=== PATIENT | female | born 1965 | race Caucasian/White ===

== ENCOUNTER → 2016-04-21 | Outpatient (CLI) | payer OTHER ==
--- NOTE | 2016-04-21 10:12 | MR ---
EXAMINATION TYPE: MR bronwyn/lsjazmine wo con DATE OF EXAM: 04/21/2016 9:34 AM COMPARISON: NONE HISTORY: 50-year-old female Headache, neck and lower back pain, bilateral upper extremity radiculopat hy x several years TECHNIQUE: Multiplanar, multisequence images of the cervical followed by the lumbar spine were obtain ed without IV contrast. FINDINGS: CERVICAL SPINE: No craniocervical junction abnormality, predental space widening, or prevertebral soft tissue swellin g. There is reversal of the normal cervical lordosis with preserved alignment. Intervertebral discs are degenerated and desiccated. Disc interspace is mild to moderately narrowed a t C5-C6 and mild at C4-C5 and C6-C7. Posterior disc bulges are present, largest at 6-C7. Scattered facet arthropathy is noted. At C2-C3, no spinal canal or neuroforaminal stenosis. At C3-C4, no spinal canal or neuroforaminal stenosis. Mild facet degenerative changes present. At C4-C5, mild discussed by complex formation and facet degenerative change. Changes causing mild marline rowing of the spinal canal without significant neuroforaminal stenosis. At C5-C6, there is broad-based disc osteophyte complex contributing to a mild to moderate narrowing o f the spinal canal effacing both the dorsal and ventral CSF and mildly flattening the ventral cord. T here is facet and uncovertebral joint degenerative change contributing to moderate bilateral neurofor aminal stenoses. At C6-C7, there is a left paracentral disc protrusion contributing to moderate spinal canal stenosis and impingement of the left paracentral ventral cord. There is mild facet arthropathy without signifi cant neural foraminal stenosis. At C7-T1, there is facet degenerative change without significant spinal canal or neuroforaminal steno sis. Towards the right at T1-T2, T2-T3, and T3-T4, there are eccentric bulges contribute to mild right-bryce ed neural foraminal stenoses at these levels. No prevertebral or paravertebral soft tissue abnormality seen. No discrete myelopathic cord signal abnormality. LUMBAR SPINE: Vertebral body heights are preserved and alignment is maintained. Fatty matrix hemangioma within T11 vertebral body. No suspicious bone marrow replacement. Conus medullaris is normal. Intervertebral discs are degenerated, desiccated, and mildly narrowed especially from L2 through S1 l evels with imaging disks throughout and posterior annular fissure at L4-L5. Hypertrophic facet arthropathy mid to lower lumbar spine. At T11-T12, there is mild diffuse disc bulge impressing on the ventral thecal sac without significant spinal canal stenosis. At T12-L1, no significant spinal canal or neuroforaminal stenosis. At L1-L2, no spinal canal or neuroforaminal stenosis. At L2-L3, there is diffuse disc bulge which impresses onto the ventral thecal sac but does not cause a significant spinal canal stenosis. However, changes do contribute to mild bilateral neuroforaminal narrowing. At L3-L4, there is facet degenerative change and diffuse disc bulge. This impresses onto the ventral thecal sac but does not cause any significant spinal canal stenosis. However, there is mild bilateral neuroforaminal stenosis. At L4-L5, hypertrophic facet arthropathy with diffuse disc bulge and posterior annular fissure. Again , this impresses on the ventral thecal sac but does not cause significant spinal canal stenosis. Disc material closely approaches and may abut both traversing L5 nerve roots. There is mild right and mod erate left neuroforaminal stenosis. At L5-S1, diffuse disc bulge with mild facet degenerative change. Changes result in mild bilateral ne uroforaminal stenoses without significant spinal canal stenosis. No prevertebral or paravertebral soft tissue abnormality. COMBINED IMPRESSION: CERVICAL SPINE: 1. MODERATE MULTILEVEL DEGENERATIVE DISC DISEASE, GREATEST FROM C4 TO C7 LEVELS ALONG WITH FACET ARTH ROPATHY. 2. A LEFT PARACENTRAL DISC HERNIATION AT C6-C7 CAUSES MODERATE SPINAL CANAL NARROWING AND IMPINGES TH E VENTRAL CORD. NO MYELOPATHIC CORD SIGNAL CHANGE. 3. MILD TO MODERATE SPINAL CANAL STENOSIS AT C5-C6 WITH FLATTENING OF THE VENTRAL CORD. 4. MILD SPINAL CANAL NARROWING AT C4-C5. 5. SOME SCATTERED LEVELS OF MILD NEURAL FORAMINAL STENOSES THOUGH MODERATE ON BOTH SIDES AT C5-C6. LUMBAR SPINE: 1. MODERATE DEGENERATIVE DISC DISEASE MID TO LOWER LUMBAR SPINE ALONG WITH HYPERTROPHIC FACET ARTHROP ATHY. 2. THERE IS A POSTERIOR ANNULAR FISSURE AT L4-L5 WITH DISC MATERIAL CLOSELY APPROACHING AND POSSIBLY ABUTTING BOTH TRAVERSING L5 NERVE ROOTS. MILD RIGHT AND MODERATE LEFT NEUROFORAMINAL STENOSIS AT THIS LEVEL. 3. ADDITIONAL POSTERIOR DISC BULGES FROM L2 TO S1 LEVELS IMPRESSING ON THE VENTRAL THECAL SAC BUT NOT CAUSING ANY SIGNIFICANT SPINAL CANAL STENOSIS. 4. VARIABLE MILD NEUROFORAMINAL STENOSES OUTLINED ABOVE.
== END ==
LOC: RADMRIMAIN 08:38
PROVIDERS: ATTEND Psychiatry & Neurology Neurology
DX: M50.223 Other cervical disc displacement at C6-C7 level (principal); M48.02 Spinal stenosis, cervical region; M51.36 Other intervertebral disc degeneration, lumbar region; M46.96 Unspecified inflammatory spondylopathy, lumbar region; M48.06 Spinal stenosis, lumbar region
CPT/HCPCS: 72141; 72148

== ENCOUNTER → 2016-11-07 | Outpatient (CLI) | payer OTHER ==
--- NOTE | 2016-11-07 10:01 | MR ---
EXAMINATION TYPE: MR brain wo con DATE OF EXAM: 11/07/2016 COMPARISON: 04/28/2013 MRI brain HISTORY: headaches Dizziness CONTRAST: Performed utilizing 0 mL intravenous Gadavist gadolinium contrast. TECHNIQUE: Multiplanar, multiecho imaging on a 3.0 Hazel magnet is performed through the brain. Stud y is performed within 24 hours of arrival to the hospital. The craniovertebral junction is normal. The pituitary is normal. Diffusion-weighted imaging is performed. No abnormal hyperintensity is present to suggest an acute i ntracranial infarct or acute ischemic change. There are a few scattered deep white matter hyperintensity slightly greater in the right centrum semi ovale and black radiata which are nonspecific but could be related to microvascular ischemic change. The largest of these includes the left black radiata 0.6 x 0.4 cm area adjacent to the anterior hor n left lateral ventricle, series 501 image 17, and the right frontal lobe white matter change in the centrum semiovale measuring 0.4 cm. Series 501 image 20 . Ventricles and sulci are appropriate for the patient age. Minimal mucosal thickening is within the anterior right ethmoid air cell. Mild mucosal thickening wit hin the bilateral maxillary sinuses. A small retention cyst may be at the inferior left maxillary sin us. IMPRESSIONS: 1. Scattered bilateral punctate deep white matter changes which are nonspecific, slightly greater on the right than the left. Findings are nonspecific but could be related to microvascular ischemic jarvis ge among other etiologies. These are out of proportion to the patient age. Differential should includ e multiple sclerosis, migraine headaches, vasculitis, Lyme disease. 2. White matter changes are increasing in number and size over the interval from 2013.
--- NOTE | 2016-11-07 10:04 | MR ---
EXAMINATION TYPE: MR angio head wo con DATE OF EXAM: 11/07/2016 COMPARISON: 10/06/2008 HISTORY: headaches Dizziness CONTRAST: None TECHNIQUE: Multiplanar multiecho imaging on a 3.0 Hazel magnet is performed through the [place]. 3-D [id number] imaging is performed. Source images are reviewed on the computer in the axi al plane. Reconstructed images rotating on the computer are reviewed. FINDINGS: The internal carotid arteries bifurcate normally into A1 and M1 segments. The A2 segments are normal. Middle cerebral artery branches are normal. Ophthalmic arteries appear normal. Anterior communicating artery is patent. The right posterior communicating artery is small but patent. The left posterior communicating artery is absent. Vertebrobasilar arteries within the [id number] are normal. Posterior cerebral vasculature is norm al. No suspicious aneurysm or aneurysmal dilatation is evident. No obstructions are identified. No significant flow-limiting stenosis is evident. IMPRESSIONS: 1. NORMAL MRA [place].
== END | disposition home or self-care (01) ==
LOC: RADMRIMAIN 07:06
PROVIDERS: ATTEND Psychiatry & Neurology Neurology
DX: R90.89 Other abnormal findings on diagnostic imaging of central nervous system (principal); R42 Dizziness and giddiness; R51 Headache; Z91.011 Allergy to milk products; Z91.02 Food additives allergy status; Z88.1 Allergy status to other antibiotic agents
CPT/HCPCS: 70544; 70551

== ENCOUNTER 2016-11-09 07:02 | Day surgery (SDC) | payer OTHER ==
[2016-11-07 12:36] VITALS: BMI 27.4
[~2016-11-09 07:02] MED LIST: LACTATED RINGERS 1,000 ML IV SCH
[2016-11-09 07:17] VITALS: RESP 16; TEMP 97
[2016-11-09] MEDS ORDERED: LACTATED RINGERS 1,000 ML IV ONE (07:26)
[2016-11-09] MEDS ORDERED: PROPOFOL 10 MG/ML 20 ML VIAL IV ONE (08:02)
--- NOTE | 2016-11-09 08:06 | P.GSHP ---
History of Present Illness H&P Date: 11/09/16 Chief Complaint: Screening colonoscopy This is a 51-year-old female who presents today for screening colonoscopy. Patient denies any significant GI complaints. Past Medical History Past Medical History: GERD/Reflux, Hypertension Additional Past Medical History / Comment(s): back pain, frequent migraines, abd. cramping @times History of Any Multi-Drug Resistant Organisms: None Reported Additional Past Surgical History / Comment(s): laparoscopy Past Anesthesia/Blood Transfusion Reactions: No Reported Reaction Smoking Status: Never smoker - Past Family History Father Family Medical History: Cancer Medications and Allergies Home Medications Medication Instructions Recorded Confirmed Type Acetaminophen Tab [Tylenol Tab] 650 mg PO Q6H PRN 11/07/16 11/09/16 History Butalb/APAP/Caff 50-325-40Mg 2 tab PO Q4H PRN 11/07/16 11/09/16 History [Fioricet 50-325-40] Cholecalciferol [Vitamin D3] 1,000 unit PO DAILY 11/07/16 11/09/16 History Omeprazole 20 mg PO DAILY 11/07/16 11/09/16 History Propranolol [Inderal] 40 mg PO DAILY 11/07/16 11/09/16 History Pyridoxine [Vitamin B-6] 50 mg PO DAILY 11/07/16 11/09/16 History Riboflavin [Vitamin B-2] 50 mg PO DAILY 11/07/16 11/09/16 History SUMAtriptan SUCCINATE [Imitrex] 25 mg PO DIRECTED PRN 11/07/16 11/09/16 History Ondansetron [Zofran] 4 mg PO Q12HR PRN 11/09/16 11/09/16 History Allergies Allergy/AdvReac Type Severity Reaction Status Date / Time celecoxib [From Celebrex] Allergy Dyspnea Verified 11/09/16 07:20 rofecoxib [From Vioxx] Allergy Dyspnea Verified 11/09/16 07:20 Surgical - Exam Vital Signs Temp Pulse Resp BP Pulse Ox 97 F L 70 16 150/70 98 11/09/16 07:16 11/09/16 07:16 11/09/16 07:16 11/09/16 07:16 11/09/16 07:16 - General well developed, no distress - Eyes PERRL - ENT normal pinna - Neck no masses - Respiratory normal expansion - Cardiovascular Rhythm: regular - Abdomen Abdomen: soft, non tender Assessment and Plan Plan: We will perform screening colonoscopy.
--- NOTE | 2016-11-09 08:17 | P.OP ---
Date of Procedure: 11/09/16 Preoperative Diagnosis: Screening colonoscopy Postoperative Diagnosis: External hemorrhoids Diverticulosis Procedure(s) Performed: Colonoscopy Anesthesia: MAC Surgeon: Bradly Paul Pathology: none sent Condition: stable Disposition: PACU Description of Procedure: The patient's placed on the endoscopy table in the lateral position. She received IV sedation. Digital rectal exam was performed which revealed external hemorrhoids. The flexible colonoscope was then placed patient anus passed throughout the entire colon. Ileocecal valve was visualized. The cecum , ascending and transverse colon appeared normal. The descending; there is mild diverticulosis. The scope was brought back the rectum and this appeared normal. Scope was withdrawn for patient.
[2016-11-09 08:54] VITALS: BP 151/79; PULSE 62
== END 2016-11-09 09:10 | disposition home or self-care (01) ==
LOC: ORWHC2ENDO 07:02
PROVIDERS: ATTEND Surgery
DX: Z12.11 Encounter for screening for malignant neoplasm of colon (principal); K57.90 Diverticulosis of intestine, part unspecified, without perforation or abscess without bleeding; K64.4 Residual hemorrhoidal skin tags; K21.9 Gastro-esophageal reflux disease without esophagitis; I25.10 Atherosclerotic heart disease of native coronary artery without angina pectoris; I10 Essential (primary) hypertension; Z79.899 Other long term (current) drug therapy; Z88.8 Allergy status to other drugs, medicaments and biological substances
CPT/HCPCS: 81025; J2704; G0121

== ENCOUNTER → 2016-11-12 | Outpatient (CLI) | payer OTHER ==
--- NOTE | 2016-11-14 07:29 | MM ---
Reason for exam: screening (asymptomatic). Last mammogram was performed 1 year and 4 months ago. History: Patient is nulliparous. Family history of premenopausal breast cancer in cousin at age 35. Benign excisional biopsy of the right breast, 2008. Benign excisional biopsy of the right breast, 1999. Physical Findings: A clinical breast exam by your physician is recommended on an annual basis and results should be correlated with mammographic findings. MG Screening Mammo w CAD Bilateral CC and MLO view(s) were taken. Prior study comparison: July 05, 2015, bilateral MG 3d screening mammo w/cad. May 24, 2014, bilateral MG screening mammo w CAD. There are scattered fibroglandular densities. There is no discrete abnormality. No significant changes when compared with prior studies. ASSESSMENT: Negative, BI-RAD 1 RECOMMENDATION: Routine screening mammogram of both breasts in 1 year.
== END | disposition home or self-care (01) ==
LOC: RADMAMWWP 16:58
PROVIDERS: ATTEND Obstetrics & Gynecology
DX: Z12.31 Encounter for screening mammogram for malignant neoplasm of breast (principal)

== ENCOUNTER → 2017-01-07 | Outpatient (CLI) | payer OTHER ==
[2017-01-07 18:42] LABS: Appearance,CSF Clear
== END | disposition home or self-care (01) ==
LOC: LABWHC1 09:16
PROVIDERS: ATTEND Nurse Practitioner Acute Care
DX: R90.82 White matter disease, unspecified (principal)
CPT/HCPCS: 36415; 82040; 82042; 82784; 83873; 83916; 84157; 87476; 88108; 89050

== ENCOUNTER → 2017-12-17 | Outpatient (CLI) | payer OTHER ==
--- NOTE | 2017-12-19 09:44 | MM ---
Reason for exam: screening (asymptomatic). Last mammogram was performed 1 year and 1 month ago. History: Patient is postmenopausal and is nulliparous. Family history of premenopausal breast cancer in cousin at age 35 and breast cancer in sister at age 48. Benign excisional biopsy of the right breast, 2008. Benign excisional biopsy of the right breast, 1999. Physical Findings: A clinical breast exam by your physician is recommended on an annual basis and results should be correlated with mammographic findings. MG Screening Mammo w CAD Bilateral CC and MLO view(s) were taken. Prior study comparison: November 12, 2016, bilateral MG screening mammo w CAD. July 05, 2015, bilateral MG 3d screening mammo w/cad. There are scattered fibroglandular densities. No suspicious abnormality. No significant changes when compared with prior studies. ASSESSMENT: Negative, BI-RAD 1 RECOMMENDATION: Routine screening mammogram of both breasts in 1 year.
== END | disposition home or self-care (01) ==
LOC: RADMAMWWP 13:27
PROVIDERS: ATTEND Obstetrics & Gynecology
DX: Z12.31 Encounter for screening mammogram for malignant neoplasm of breast (principal)
CPT/HCPCS: 77067

== ENCOUNTER → 2020-03-17 | Outpatient (CLI) | payer OTHER ==
--- NOTE | 2020-03-18 11:34 | MM ---
Reason for exam: screening (asymptomatic). Last mammogram was performed 2 years and 3 months ago. History: Patient is postmenopausal and is nulliparous. Family history of premenopausal breast cancer in cousin at age 35 and breast cancer in sister at age 48. Benign excisional biopsy of the right breast, 2008. Benign excisional biopsy of the right breast, 1999. Physical Findings: A clinical breast exam by your physician is recommended on an annual basis and results should be correlated with mammographic findings. MG Screening Mammo w CAD Bilateral CC and MLO view(s) were taken. Prior study comparison: December 17, 2017, bilateral MG screening mammo w CAD. November 12, 2016, bilateral MG screening mammo w CAD. There are scattered fibroglandular densities. No significant changes when compared with prior studies. ASSESSMENT: Benign, BI-RAD 2 RECOMMENDATION: Routine screening mammogram of both breasts in 1 year.
== END | disposition home or self-care (01) ==
LOC: RADMAMWWP 12:34
PROVIDERS: ATTEND Obstetrics & Gynecology
DX: Z12.39 Encounter for other screening for malignant neoplasm of breast (principal)
CPT/HCPCS: 77067

== ENCOUNTER → 2020-05-03 | Outpatient (CLI) | payer OTHER ==
--- NOTE | 2020-05-04 09:50 | CT ---
EXAMINATION TYPE: CT abdomen pelvis wo con DATE OF EXAM: 05/03/2020 COMPARISON: None HISTORY: RLQ pain, LLQ pain. cramping. CT DLP: 503.20 mGycm Automated exposure control for dose reduction was used. TECHNIQUE: Helical acquisition of images from the lung bases through the pelvis. Patient received or al contrast only. FINDINGS: Posterior diaphragmatic hernia on the left contains fat. Lack of intravenous contrast could compromise sensitivity. LUNG BASES: No significant abnormality is appreciated. AORTA: No significant abnormality is appreciataed. LIVER/GB: No significant abnormality is appreciated. PANCREAS: No significant abnormality is seen. SPLEEN: No significant abnormality is seen. ADRENALS: No significant abnormality is seen. KIDNEYS: No significant abnormality is seen. REPRODUCTIVE ORGANS: No significant abnormality is seen. URINARY BLADDER: No significant abnormality is seen. BOWEL: Diverticular changes are associated with the sigmoid colon. Contrast material has not coursed throughout the bowel, the colon is not contrast filled nor is the distal small bowel. The appendix s hows no inflammatory change.. FREE AIR: No Free Air is visible. ASCITES: None visible. PELVIC ADENOPATHY: None visualized. RETROPERITONEAL ADENOPATHY: No Retroperitoneal Adenopathy visible. OSSEOUS STRUCTURES: Degenerative disc changes are present in the lumbar spine. Suspect possible disc herniation L5-S1. IMPRESSION: DIVERTICULOSIS, DEGENERATIVE DISC DISEASE AND ADDITIONAL FINDINGS ABOVE. NONCONTRAST EXAM.
== END ==
LOC: RADCTMAIN 13:42
PROVIDERS: ATTEND Family Medicine
DX: K57.90 Diverticulosis of intestine, part unspecified, without perforation or abscess without bleeding (principal)
CPT/HCPCS: 74176

== ENCOUNTER → 2020-08-25 | Outpatient (CLI) | payer OTHER ==
--- NOTE | 2020-08-29 05:00 | ECHOF ---
Referral Reason:R01.1 Cardiac murmur MEASUREMENTS -------- HEIGHT: 162.6 cm WEIGHT: 77.1 kg BP: 134/63 RVIDd: 3.2 cm (< 3.3) IVSd: 1.2 cm (0.6 - 1.1) LVIDd: 4.5 cm (3.9 - 5.3) LVPWd: 1.2 cm (0.6 - 1.1) IVSs: 1.6 cm LVIDs: 2.6 cm LVPWs: 1.7 cm LA Diam: 3.2 cm (2.7 - 3.8) LAESV Index (A-L): 27.14 ml/m Ao Diam: 3.0 cm (2.0 - 3.7) AV Cusp: 2.1 cm (1.5 - 2.6) MV EXCURSION: 18.872 mm (> 18.000) MV EF SLOPE: 92 mm/s (70 - 150) EPSS: 0.4 cm MV E Neeraj: 0.93 m/s MV DecT: 269 ms MV A Neeraj: 0.92 m/s MV E/A Ratio: 1.02 RAP: 5.00 mmHg RVSP: 31.19 mmHg FINDINGS -------- Sinus rhythm. This was a technically adequate study. The left ventricular size is normal. There is borderline concentric left ventricular hypertrophy. Overall left ventricular systolic function is normal with, an EF between 55 - 60 %. The right ventricle is normal in size. Normal LA size by volume 22+/-6 ml/m2. The right atrial size is normal. Interatrial and interventricular septum intact. The aortic valve is trileaflet, and appears structurally normal. No aortic stenosis or regurgitation. The mitral valve is normal. Mild mitral regurgitation is present. The tricuspid valve appears structurally normal. Mild tricuspid regurgitation present. Right vent ricular systolic pressure is normal at < 35 mmHg. Trace/mild (physiologic) pulmonic regurgitation. The aortic root size is normal. Normal inferior vena cava with normal inspiratory collapse consistent with estimated right atrial pre ssure of 5 mmHg. There is no pericardial effusion. CONCLUSIONS -------- 1. There is borderline concentric left ventricular hypertrophy. 2. Overall left ventricular systolic function is normal with, an EF between 55 - 60 %. 3. Normal LA size by volume 22+/-6 ml/m2. 4. The aortic valve is trileaflet, and appears structurally normal. No aortic stenosis or regurgitati on. 5. Mild mitral regurgitation is present. 6. Mild tricuspid regurgitation present. 7. Trace/mild (physiologic) pulmonic regurgitation. 8. There is no pericardial effusion. TOWEL STRETCHER: Gaby Abreu RDCS
== END | disposition home or self-care (01) ==
LOC: RADECHMAIN 13:45
PROVIDERS: ATTEND Family Medicine
DX: I08.1 Rheumatic disorders of both mitral and tricuspid valves (principal)
CPT/HCPCS: 93306

== ENCOUNTER → 2021-08-30 | Outpatient (CLI) | payer OTHER ==
--- NOTE | 2021-08-31 08:44 | MM ---
Reason for Exam: Screening (asymptomatic). Last mammogram was performed 1 year(s) and 6 month(s) ago. Patient History: Menarche at age 12. Patient has no children. Postmenopausal. 2008, Benign Excisional Biopsy on the right side. 1999, Benign Excisional Biopsy on the right side. Maternal cousin had breast cancer, age 35. Sister had breast cancer, age 48. Risk Values: Hallie 5 year model risk: 3.6%. NCI Lifetime model risk: 19.3%. Prior Study Comparison: 07/05/2015 Bilateral Screening Mammogram, [facility]. 11/12/2016 Bilateral Screening Mammogram, [facility]. 12/17/2017 Bilateral Screening Mammogram, [facility]. 03/17/2020 Bilateral Screening Mammogram, [facility]. Tissue Density: The breast tissue is heterogeneously dense. This may lower the sensitivity of mammography. Findings: Analyzed By CAD. There is no suspicious group of microcalcifications or new suspicious mass in either breast. Overall Assessment: Negative, BI-RAD 1 Management: Screening Mammogram of both breasts in 1 year. A clinical breast exam by your physician is recommended on an annual basis and results should be correlated with mammographic findings. Electronically signed and approved by: Peter Curry M.D. Radiologis
== END | disposition home or self-care (01) ==
LOC: RADMAMWWP 07:10
PROVIDERS: ATTEND Internal Medicine
DX: Z12.31 Encounter for screening mammogram for malignant neoplasm of breast (principal); Z78.0 Asymptomatic menopausal state; Z80.3 Family history of malignant neoplasm of breast
CPT/HCPCS: 77067

== ENCOUNTER → 2022-02-15 | Outpatient (CLI) | payer OTHER ==
[2022-02-15 08:22] VITALS: BP 157/69; PULSE 80; RESP 18; TEMP 98.4
--- NOTE | 2022-02-15 08:36 | P.PAINCN ---
History of Present Illness - Reason for Consult Consult date: 02/15/22 - Chief Complaint Neck pain, and pain radiating to bilateral upper extremity - History of Present Illness Ms. Alcala is a 56 year old pleasant female patient came to [facility] pain management clinic for initial evaluation for neck pain. Patient described pain started more than 2 years ago. Gradually getting worse . Sometimes her pain radiating to bilateral upper extremity causing numbness and tingling sensation. Patient described pain as aching, sharp, throbbing, burning type sometimes of pain. Patient rated pain 2-3 out of 10 in severity. Which may very her pain level from 2-7 out of 10 in severity. Pain increases with activities, and, bending and lifting. Pain decreases with Flexeril and and Motrin. Overall patient activities decreased secondary to pain. Pain medications helping to some extent. Because of the pain patient is feeling lack of sleep and interest and energy. Denied any bowel or bladder problems. Patient denies any adverse effects to medications. Not using any walking aids for walking. Complaining depression secondary to pain but denied any suicidal/homicidal tendency at this time. Sleep pattern -good with the help of pain medications. There are no signs of narcotic diversion/misuse/overuse and no new-onset weakness, bowel/bladder incontinence, saddle anesthesia, or no red flag symptoms. Conservative treatment tried: Hszi-rdd-[id number] medications, and Flexeril Uleq-tpx-yqzemiv lidocaine patch Ice, and heat Physical therapy exercises- trying 2013 made her pain worse, exercises at home as tolerated TENS unit's- never tried Chiropractic therapy- never tried Review of Systems 12 point review of symptoms negative except as mentioned in the history of present illness Past Medical History Past Medical History: GERD/Reflux, Hypertension Additional Past Medical History / Comment(s): back pain, frequent migraines, abd. cramping @times History of Any Multi-Drug Resistant Organisms: None Reported Additional Past Surgical History / Comment(s): laparoscopy Past Anesthesia/Blood Transfusion Reactions: No Reported Reaction Past Alcohol Use History: None Reported Past Drug Use History: None Reported - Past Family History Father Family Medical History: Cancer Medications and Allergies Home Medications Medication Instructions Recorded Confirmed Type Acetaminophen Tab [Tylenol Tab] 650 mg PO Q6H PRN 11/07/16 11/09/16 History Butalb/APAP/Caff 50-325-40Mg 2 tab PO Q4H PRN 11/07/16 11/09/16 History [Fioricet 50-325-40] Cholecalciferol [Vitamin D3] 1,000 unit PO DAILY 11/07/16 11/09/16 History Omeprazole 20 mg PO DAILY 11/07/16 11/09/16 History Propranolol [Inderal] 40 mg PO DAILY 11/07/16 11/09/16 History Pyridoxine [Vitamin B-6] 50 mg PO DAILY 11/07/16 11/09/16 History Riboflavin (Vitamin B2) [Vitamin 50 mg PO DAILY 11/07/16 11/09/16 History B-2] SUMAtriptan succinate [Imitrex] 25 mg PO DIRECTED PRN 11/07/16 11/09/16 History Ondansetron [Zofran] 4 mg PO Q12HR PRN 11/09/16 11/09/16 History Allergies Allergy/AdvReac Type Severity Reaction Status Date / Time celecoxib [From Celebrex] Allergy Dyspnea Verified 11/09/16 07:20 rofecoxib [From Vioxx] Allergy Dyspnea Verified 11/09/16 07:20 Physical Exam Vitals: General: Well-developed, well-nourished, no acute distress HEENT: Normocephalic, and atraumatic Neck: Supple, no neck swelling Psychiatric: Appropriate mood, and affect RIVETER PORTABLE MACHINE: No focal neurological deficits Musculoskeletal: Upper extremity: Normal strength, and range of motion. Sensation grossly intact Lower extremity: Normal strength, and normal range of motion, sensation grossly intact. Cervical spine: Paravertebral tenderness: Positive Cervical spine facet abilio: Positive Cervical spine Spurling test: Negative Results Comments: MRI of the cervical spine done on 05/10/2021 showed Nonspecific straightening of normal cervical lordosis consistent with strain in the appropriate clinical circumstance. C3-C4: 1-2 mL annular disc bulge affects the ventral surface of the thecal sac resulting in severe right, moderate to severe left neural foraminal encroachment and bilateral exiting C4 nerve root impinging in conjunction with marginal osteophyte formation C4-C5: 2-3 BONNIE annular disc bulge affects the ventral surface of the thecal sac resulting in severe bilateral neural foraminal encroachment, and bilateral exiting C5 nerve impingement in conjunction with marginal osteophyte formation. Mild canal stenosis is seen. C5-C6: 4-5 mL broad-based disc herniation affects the ventral surface of the thecal sac resulting in severe bilateral neural foraminal encroachment, and bilateral exiting C6 nerve impingement in conjunction with marginal osteophyte formation. Moderate canal stenosis. C6-C7: 2-3 BONNIE broad-based disc herniation effaces the ventral surface of the thecal sac resulting in mild bilateral neural foraminotomy encroachment, bilateral exiting C7 nerve root impingement in conjunction with marginal osteophyte formation. Mild canal stenosis C7-T1: 1-2 BONNIE annular bulge affects the ventral surface of the thecal sac without evidence of central canal or limiting foraminal stenosis. Assessment and Plan Assessment: Cervical spondylosis without myelopathy Cervical spondylosis with stenosis Cervical radiculopathy Myofascial pain syndrome, and chronic pain syndrome Plan: #1 Diagnoses, prognosis, and multiple treatment options including but not limited to physical therapy, interventional therapy, adjunct medication therapy, narcotic medication, and surgical options were discussed with the patient. And all questions were answered to the patient's satisfaction. #2 treatment plan agreement : Patient was thoroughly discussed regarding the treatment options, alternatives, and importance of exercises as tolerated. Patient clearly understood. #3 Patient was counseled on importance of regular exercise. Including jacque chi, aerobic exercises as tolerated. Which helps for chronic pain, and overall well- being. Patient also counseled regarding importance of anti-inflammatory food in controlling chronic pain, and overall other health issues. By altering diet habits, minimizing sugar intake, and processed foods helps in minimizing Inflammation. #4 investigations: MAPS- reviewed , urine drug test- none #5 diagnostic tests: None at this time #6 consultation : Physical therapy- 2 times per week for 6 weeks duration # 7 interventional procedures: C6-C7 cervical epidural in 8 weeks duration if physical therapy not much helpful . Procedure, complications, alternatives discussed with the patient. #8 medications #1 Flexeril and milligram by mouth every 12 hours as needed for muscle spasm dispense 60 with 2 refills #2 Motrin as needed #3 Tylenol as needed Medication side effects, complications, long-term consequences discussed with the patient. Patient recommended to contact the pain clinic if noticed any issues with given medications. #9 morphine milligrams equivalents dose ( MME) per day: 0 from the pain clinic. # 10 TENS unit's, and percussion massage device #11 disposition: scheduled to follow up with pain clinic in 8 weeks duration. Time with Patient: Less than 30 PQRS Measure Charge Sheet Measure #130: Documentation of Current Meds in Medical Chart: Patient's medications documented in chart Measure #226: Tobacco Use: Screen & Cessation Intervention: Pt not a tobacco user Measure #111: Pneumonia Vaccination: Pneumococcal vaccine NOT administered or previously given Measure #47: Advance Care Plan: Advance care planning discussed & documented, pt chose/unable to give Measure #412: Opioid Treatment Agreement: No documentation of signed opioid treatment agreement Measure #408: Opioid Therapy Follow-up Evaluation: Patient had NO f/u eval minimum every 3 months during opioid therapy Measure #317: Preventitive Care & Scrn High Bld Press & F/U: Pre-hypertensive or hypertensive BP documented, pt will f/u with PCP Measure #128: Body Mass Index (BMI) Screening & Follow-up: BMI documented within normal parameters Measure #131: Pain Assessment & Follow-up: Pain positive & plan documented Measure #431: Unhealthy Alcohol Use Preventative Care & Scrn: Patient not identified as an unhealthy alcohol user PQRS Narrative: Smoking Status Never smoker Home Medications: Ambulatory Orders Acetaminophen Tab [Tylenol Tab] 650 mg PO Q6H PRN 11/07/16 Butalb/APAP/Caff 50-325-40Mg [Fioricet 50-325-40] 2 tab PO Q4H PRN 11/07/16 Cholecalciferol [Vitamin D3] 1,000 unit PO DAILY 11/07/16 Omeprazole 20 mg PO DAILY 11/07/16 Propranolol [Inderal] 40 mg PO DAILY 11/07/16 Pyridoxine [Vitamin B-6] 50 mg PO DAILY 11/07/16 Riboflavin (Vitamin B2) [Vitamin B-2] 50 mg PO DAILY 11/07/16 SUMAtriptan succinate [Imitrex] 25 mg PO DIRECTED PRN 11/07/16 Ondansetron [Zofran] 4 mg PO Q12HR PRN 11/09/16
== END ==
LOC: PNWHC3 07:45
DX: M47.22 Other spondylosis with radiculopathy, cervical region (principal); M79.10 Myalgia, unspecified site; G89.4 Chronic pain syndrome; M48.02 Spinal stenosis, cervical region; K21.9 Gastro-esophageal reflux disease without esophagitis; I10 Essential (primary) hypertension; Z88.6 Allergy status to analgesic agent; Z88.1 Allergy status to other antibiotic agents
CPT/HCPCS: 99211

== ENCOUNTER → 2022-06-21 | Outpatient (CLI) | payer OTHER ==
--- NOTE | 2022-06-22 10:46 | CA ---
Transthoracic Echo Report Name: Mara Alcala Age: 56 Gender: F : 1965 Exam Date: 06/21/2022 10:38 Exam Location: [facility] Ht (in): 64 Wt (lb): 160 Ordering Physician: Johnson Noel MD ([id number]) Attending/Referring Phys: Blaise Levy DO Health Technical Writer Letty Jorgensen RDCS Procedure CPT: Indications: SHORTNESS OF BREATH Cardiac Hx: Technical Quality: Fair Contrast 1: Total Dose (mL): Contrast 2: Total Dose (mL): MEASUREMENTS (Male / Female) Normal Values 2D ECHO LV Diastolic Diameter PLAX 3.2 cm 4.2 - 5.9 / 3.9 - 5.3 cm LV Systolic Diameter PLAX 2.4 cm IVS Diastolic Thickness 1.3 cm 0.6 - 1.0 / 0.6 - 0.9 cm LVPW Diastolic Thickness 1.5 cm 0.6 - 1.0 / 0.6 - 0.9 cm LV Relative Wall Thickness 0.9 RV Internal Dim ED PLAX 3.3 cm LA Volume 41.8 cm??? 18 - 58 / 22 - 52 cm??? M-MODE Aortic Root Diameter MM 3.1 cm LA Systolic Diameter MM 4.0 cm LA Ao Ratio MM 1.3 AV Cusp Separation MM 1.8 cm DOPPLER AV Peak Velocity 127.3 cm/s AV Peak Gradient 6.5 mmHg LVOT Peak Velocity 94.3 cm/s LVOT Peak Gradient 3.6 mmHg LVOT Velocity Time Integral 16.6 cm MV E' Velocity 8.7 cm/s FINDINGS Left Ventricle Moderately increased left ventricular wall thickness. No obvious regional wall motion abnormalities. Left ventricular ejection fraction is estimated at 50-55 %. Right Ventricle Normal right ventricular size and function. Right ventricular systolic pressure within normal limits. Right Atrium Normal right atrial size. Left Atrium Normal left atrial size. Mitral Valve Structurally normal mitral valve. No mitral stenosis, regurgitation or prolapse. Aortic Valve No aortic valve stenosis or regurgitation. No aortic valve stenosis or regurgitation. Tricuspid Valve Structurally normal tricuspid valve. Mild tricuspid regurgitation. Pulmonic Valve Structurally normal pulmonic valve. Trace pulmonic regurgitation. Pericardium No pericardial effusion. Aorta Normal size aortic root and proximal ascending aorta. CONCLUSIONS Normal LV systolic function. Concentric LVH Previewed by: Dr. Johnson Noel MD (Electronically Signed) Final Date: 22 June 2022 10:45
== END | disposition home or self-care (01) ==
LOC: RADNMMAIN 09:52
PROVIDERS: ATTEND Internal Medicine Interventional Cardiology
DX: R06.02 Shortness of breath (principal)
CPT/HCPCS: 93306

== ENCOUNTER → 2023-04-15 | Day surgery (SDC) | payer OTHER ==
[2023-04-11 10:22] VITALS: BMI 26.6
[~2023-04-15] MED LIST changes: +ALPRAZolam 0.25 MG TAB PO PRN; +ALPRAZolam 0.5 MG TAB PO PRN; +HEPARIN SODIUM 1,000 UN/ML (10ML VL) ONE; -LACTATED RINGERS 1,000 ML IV SCH; +LIDOCAINE 1% INJ 10MG/ML (20 ML MDV) ONE; +NITROGLYCERIN SL TABS 0.4 MG TAB SUBLINGUAL PRN; +RX INFO: IV CONTRAST WAS GIVEN 1 EACH MISC MISCELLANE PRN; +SODIUM CHLORIDE 0.9% 1,000 ML IV SCH; +VERAPAMIL 2.5 MG/ML 2 ML AMP ONE
[2023-04-15] MEDS: SODIUM CHLORIDE 0.9% 1,000 ML in EMPTY BAG 1 BAG IV SCH (07:20)
[2023-04-15 08:01] VITALS: TEMP 98.2
[2023-04-15] MEDS: LIDOCAINE 1% INJ 10MG/ML (20 ML MDV) SQ ONE (08:28)
[2023-04-15] MEDS: MIDAZOLAM 2 MG/2 ML VIAL IVP ONE (08:58)
[2023-04-15] MEDS: VERAPAMIL SYRINGE (5 MG/10 ML) INTRAARTER ONE (09:04)
[2023-04-15] MEDS: LIDOCAINE 1% INJ 10MG/ML (30 ML VIAL-PF) SQ ONE (09:04)
[2023-04-15] MEDS: HEPARIN SODIUM 1,000 UN/ML (10ML VL) IV ONE (09:07)
[2023-04-15] MEDS: IOPAMIDOL-370 100ML BTL INJ ONE (09:14)
--- NOTE | 2023-04-15 09:38 | P.PCN ---
Date of Procedure: 04/15/23 Operative Findings: CARDIAC CATHETERIZATION PERFORMING PHYSICIAN: Johnson Noel MD, RPVI PROCEDURE PERFORMED: 1. Selective right and left coronary angiogram 2. Left heart catheterization 3. Ultrasound-guided access of the right radial artery INDICATION: Chest discomfort concerning for angina in this 57-year-old female patient who underwent a CTA and that showed coronary artery disease. COMPLICATION: None APPROACH: Right radial artery LEVEL OF SEDATION: Moderate with a sedation length of 11 minutes PROCEDURE DESCRIPTION: After obtaining an informed consent, the patient was brought to cardiac ammunition assembly laborer. Local anesthesia was performed using lidocaine subcutaneously. The right radial artery was cannulated using Seldinger technique under ultrasound guidance, the guidewire passed easily, following that we advanced a 5-[place] sheath dilator assembly, the wire and dilator were removed and sheath was flushed. Following that, 2 mg of verapamil along with 5000 unit heparin were given. Selective right and left coronary angiogram using a 6-[place] Citizen JR4 and JL 3.5 catheters. Following that we did left heart catheterization using the JR4 catheter. The procedure was completed there was no complication. SELECTIVE CORONARY ANGIOGRAM: The right coronary artery: Large caliber vessel and a dominant vessel with mild disease involving the midportion appears to be in the range of 30-40%. Left main: Large caliber vessel. The left circumflex: Large caliber vessel and dominant vessel. Its angiographically normal. Gives rises into the first obtuse marginal branch which trifurcates into 3 subbranches. OM1 is normal. The circumflex continue as a small-caliber vessel in the AV groove The left anterior descending artery: Large caliber vessel. The proximal LAD is angiographically normal. The mid and distal LAD are normal. The LAD gives rise into the first and second diagonal branches both appeared to be angiographically normal HEMODYNAMICS: The LVEDP was about 20 mmHg was no gradient across aortic valve CONCLUSION: 1. Mild to moderate disease involving the mid RCA appears to be in the range of 30-40% 2. Elevated left-sided filling pressure POSTPROCEDURE MANAGEMENT: Medical treatment
[2023-04-16 16:45] VITALS: BP 134/68; PULSE 60; RESP 14
== END ==
LOC: CATHCVL 06:47
PROVIDERS: ATTEND Internal Medicine Interventional Cardiology
DX: I25.10 Atherosclerotic heart disease of native coronary artery without angina pectoris (principal); I10 Essential (primary) hypertension; E78.5 Hyperlipidemia, unspecified; Z79.01 Long term (current) use of anticoagulants; Z79.899 Other long term (current) drug therapy
CPT/HCPCS: 93458; 76937; C1769; C1894; J2250; J2001; J1644; Q9967